=== PATIENT | female | born 1940 | race Caucasian/White ===

== ENCOUNTER 2016-07-11 06:24 | Outpatient (CLI) ==
[2013-04-25 07:03] VITALS: BMI 32.4
[2016-07-11 06:38] LABS: BASOPHILS # (AUTO) 0.1 K/uL (0-0.2); BASOPHILS % (AUTO) 0.8 % (0.0-3.0); EOSINOPHILS # (AUTO) 0.2 K/ul (0.0-0.7); EOSINOPHILS % (AUTO) 2.5 % (0.0-7.0); HEMATOCRIT 41.3 % (37.0-47.0); HEMOGLOBIN 13.4 g/dl (12.0-16.0); IMMATURE GRANULOCYTE % (AUTO) 0.5 % (0.0-5.0); LYMPHOCYTES # (AUTO) 2.7 K/uL (0.60-3.4); LYMPHOCYTES % (AUTO) 28.8 (10.0-50.0); MEAN CORPUSCULAR HEMOGLOBIN 28.3 pg (27.0-31.0); MEAN CORPUSCULAR HGB CONC 32.4 (31.8-35.4); MEAN CORPUSCULAR VOLUME 87.3 fl (81.0-99.0); MONOCYTES # (AUTO) 0.7 K/uL (0.4-2.0); MONOCYTES % (AUTO) 7.8 (0-10); NEUTROPHILS # (AUTO) 5.6 K/ul (2.0-6.9); NEUTROPHILS % (AUTO) 59.6; PLATELET COUNT 294 10^3/uL (140-440); RED BLOOD COUNT 4.73 10^6/ul (4.20-5.40); WHITE BLOOD COUNT 9.46 K/ul (4.6-10.2)
[2016-07-11 07:09] LABS: ALBUMIN 3.7 g/dL (3.4-5.0); ALBUMIN/GLOBULIN RATIO 1.03; ANION GAP 10.7; BILIRUBIN,TOTAL 0.38 mg/dL (0.00-1.20); BUN/CREATININE RATIO 17.64; CALCIUM 9.9 mg/dL (8.2-10.2); CHOL/HDL RATIO 4.7 (4.5-5.5); CREATININE 1.36 mg/dL (0.60-1.30); POTASSIUM 4.7 mmol/L (3.5-5.10); TOTAL PROTEIN 7.3 g/dL (5.8-8.1)
== END 2016-07-11 06:25 | disposition home or self-care (01) ==
LOC: LAB 06:24
PROVIDERS: ATTEND Nurse Practitioner Family
DX: E11.9 Type 2 diabetes mellitus without complications (principal); E78.5 Hyperlipidemia, unspecified; R42 Dizziness and giddiness
CPT/HCPCS: 36415; 80053; 80061; 83036; 85025

== ENCOUNTER 2016-10-18 15:56 | Outpatient (CLI) | payer OTHER ==
[2013-04-25 07:03] VITALS: BMI 32.4
--- NOTE | 2016-10-18 16:16 | DI ---
EXAM: Chest two views HISTORY: Cough COMPARISON: 04/25/2013 TECHNIQUE: Two views of the chest were performed FINDINGS: The lungs are clear. There is no pleural effusion or pneumothorax. The heart is normal in size. The mediastinal contour is normal, noting atherosclerosis. There are no acute abnormaliti es of the bones. IMPRESSION: No acute cardiopulmonary process.
== END 2016-10-18 15:57 | disposition home or self-care (01) ==
LOC: RAD 15:56
PROVIDERS: ATTEND Nurse Practitioner Family
DX: R05 Cough (principal)

== ENCOUNTER 2016-11-30 06:49 | Outpatient (CLI) ==
[2013-04-25 07:03] VITALS: BMI 32.4
[2016-11-30 07:04] LABS: BASOPHILS # (AUTO) 0.1 K/uL (0-0.2); BASOPHILS % (AUTO) 0.6 % (0.0-3.0); EOSINOPHILS # (AUTO) 0.2 K/ul (0.0-0.7); EOSINOPHILS % (AUTO) 2.3 % (0.0-7.0); HEMATOCRIT 39.6 % (37.0-47.0); IMMATURE GRANULOCYTE % (AUTO) 0.4 % (0.0-5.0); LYMPHOCYTES # (AUTO) 2.5 K/uL (0.60-3.4); LYMPHOCYTES % (AUTO) 26.3 (10.0-50.0); MEAN CORPUSCULAR HEMOGLOBIN 28.3 pg (27.0-31.0); MEAN CORPUSCULAR HGB CONC 32.8 (31.8-35.4); MEAN CORPUSCULAR VOLUME 86.1 fl (81.0-99.0); MONOCYTES # (AUTO) 0.7 K/uL (0.4-2.0); MONOCYTES % (AUTO) 7.1 (0-10); NEUTROPHILS % (AUTO) 63.3; PLATELET COUNT 293 10^3/uL (140-440)
[2016-11-30 07:45] LABS: ALBUMIN 3.7 g/dL (3.4-5.0); ALBUMIN/GLOBULIN RATIO 1.09; ANION GAP 16.5; BILIRUBIN,TOTAL 0.41 mg/dL (0.00-1.20); CHOL/HDL RATIO 3.9 (4.5-5.5); CREATININE 1.21 mg/dL (0.60-1.30); POTASSIUM 4.5 mmol/L (3.5-5.10); TOTAL PROTEIN 7.1 g/dL (5.8-8.1)
== END 2016-11-30 06:50 | disposition home or self-care (01) ==
LOC: LAB 06:49
PROVIDERS: ATTEND Nurse Practitioner Family
DX: I10 Essential (primary) hypertension (principal); E78.5 Hyperlipidemia, unspecified; E11.9 Type 2 diabetes mellitus without complications
CPT/HCPCS: 36415; 80053; 80061; 83036; 84443; 85025

== ENCOUNTER 2017-03-03 06:07 | Outpatient (CLI) ==
[2013-04-25 07:03] VITALS: BMI 32.4
[2017-03-03 06:17] LABS: BASOPHILS # (AUTO) 0.1 K/uL (0-0.2); BASOPHILS % (AUTO) 0.6 % (0.0-3.0); EOSINOPHILS # (AUTO) 0.3 K/ul (0.0-0.7); EOSINOPHILS % (AUTO) 3.4 % (0.0-7.0); HEMATOCRIT 37.6 % (37.0-47.0); HEMOGLOBIN 12.6 g/dl (12.0-16.0); IMMATURE GRANULOCYTE % (AUTO) 0.6 % (0.0-5.0); LYMPHOCYTES # (AUTO) 2.9 K/uL (0.60-3.4); LYMPHOCYTES % (AUTO) 34.3 (10.0-50.0); MEAN CORPUSCULAR HEMOGLOBIN 28.5 pg (27.0-31.0); MEAN CORPUSCULAR HGB CONC 33.5 (31.8-35.4); MEAN CORPUSCULAR VOLUME 85.1 fl (81.0-99.0); MONOCYTES # (AUTO) 0.7 K/uL (0.4-2.0); MONOCYTES % (AUTO) 8.4 (0-10); NEUTROPHILS # (AUTO) 4.4 K/ul (2.0-6.9); NEUTROPHILS % (AUTO) 52.7; PLATELET COUNT 270 10^3/uL (140-440); RED BLOOD COUNT 4.42 10^6/ul (4.20-5.40); WHITE BLOOD COUNT 8.42 K/ul (4.6-10.2)
[2017-03-03 06:37] LABS: ALBUMIN 3.5 g/dL (3.4-5.0); ANION GAP 13.6; BILIRUBIN,TOTAL 0.42 mg/dL (0.00-1.20); BUN/CREATININE RATIO 14.92; CALCIUM 10.4 mg/dL (8.2-10.2); CHOL/HDL RATIO 3.8 (4.5-5.5); CREATININE 1.34 mg/dL (0.60-1.30); POTASSIUM 4.6 mmol/L (3.5-5.10)
== END 2017-03-03 06:08 | disposition home or self-care (01) ==
LOC: LAB 06:07
PROVIDERS: ATTEND Nurse Practitioner Family
DX: E11.9 Type 2 diabetes mellitus without complications (principal); E78.5 Hyperlipidemia, unspecified; I10 Essential (primary) hypertension; R94.4 Abnormal results of kidney function studies
CPT/HCPCS: 36415; 80053; 80061; 83036; 85025

== ENCOUNTER 2017-06-02 13:03 | Outpatient (CLI) ==
[2013-04-25 07:03] VITALS: BMI 32.4
[2017-06-02 13:33] LABS: BASOPHILS % (AUTO) 0.5 % (0.0-3.0); EOSINOPHILS # (AUTO) 0.2 K/ul (0.0-0.7); HEMATOCRIT 40.8 % (37.0-47.0); HEMOGLOBIN 13.3 g/dl (12.0-16.0); IMMATURE GRANULOCYTE % (AUTO) 0.1 % (0.0-5.0); LYMPHOCYTES # (AUTO) 2.6 K/uL (0.60-3.4); LYMPHOCYTES % (AUTO) 33.9 (10.0-50.0); MEAN CORPUSCULAR HEMOGLOBIN 27.9 pg (27.0-31.0); MEAN CORPUSCULAR HGB CONC 32.6 (31.8-35.4); MEAN CORPUSCULAR VOLUME 85.7 fl (81.0-99.0); MONOCYTES # (AUTO) 0.6 K/uL (0.4-2.0); MONOCYTES % (AUTO) 8.1 (0-10); NEUTROPHILS # (AUTO) 4.1 K/ul (2.0-6.9); NEUTROPHILS % (AUTO) 54.4; PLATELET COUNT 292 10^3/uL (140-440); RED BLOOD COUNT 4.76 10^6/ul (4.20-5.40); WHITE BLOOD COUNT 7.63 K/ul (4.6-10.2)
[2017-06-02 14:23] LABS: ALBUMIN 3.7 g/dL (3.4-5.0); ALBUMIN/GLOBULIN RATIO 0.93; ANION GAP 14.6; BILIRUBIN,TOTAL 0.38 mg/dL (0.00-1.20); BUN/CREATININE RATIO 18.97; CALCIUM 10.6 mg/dL (8.2-10.2); CHOL/HDL RATIO 4.1 (4.5-5.5); CREATININE 1.37 mg/dL (0.60-1.30); POTASSIUM 4.6 mmol/L (3.5-5.10); TOTAL PROTEIN 7.7 g/dL (5.8-8.1)
== END 2017-06-02 13:04 | disposition home or self-care (01) ==
LOC: LAB 13:03
PROVIDERS: ATTEND Nurse Practitioner Family
DX: I10 Essential (primary) hypertension (principal); E78.5 Hyperlipidemia, unspecified; E11.9 Type 2 diabetes mellitus without complications
CPT/HCPCS: 36415; 80053; 80061; 83036; 84443; 85025

== ENCOUNTER 2017-09-01 08:51 | Outpatient (CLI) ==
[2013-04-25 07:03] VITALS: BMI 32.4
== END 2017-09-01 08:52 | disposition home or self-care (01) ==
LOC: RHC-LAB 08:51
PROVIDERS: ATTEND Nurse Practitioner Family
DX: E11.9 Type 2 diabetes mellitus without complications (principal); E78.5 Hyperlipidemia, unspecified; I10 Essential (primary) hypertension
CPT/HCPCS: 36415; 80053; 80061; 83036

== ENCOUNTER 2017-10-21 07:57 | Outpatient (CLI) ==
[2013-04-25 07:03] VITALS: BMI 32.4
--- NOTE | 2017-10-21 10:29 | MRI ---
EXAM: MRI of the left hip without contrast COMPARISON: MRI of the left hip 12/25/2015. Right hip radiographs 10/02/2009 without recent radiogr aphs of the left hip. MRI of the lumbar spine 08/16/2015. HISTORY: Constant left hip pain. TECHNIQUE: Multiplanar noncontrast MR images of the left hip were acquired using a 1.2 Cheli magnet. Large field of view imaging was employed on the axial and coronal sequences with inclusion both rig ht and left hips in the field of view with sagittal images obtained only through the left hip. FINDINGS: No recent radiographs of the pelvis/hips available for comparison and radiographic correla tion is recommended. There is susceptibility artifact related to the patient's right total hip prosthesis which limits ass essment of the osseous structures and adjacent soft tissues at that level. There is inhomogeneous fa t saturation on the axial T2W fat saturation sequence as a result of the hardware at that site. There is intervertebral the space narrowing. Facet hypertrophy throughout the visualized portions lower l umbar spine. Mild marrow heterogeneity with confluent regions of inversion recovery hyperintense/T1 hypointense signal suggesting nonspecific red marrow reconversion/hyperplasia. There is no evidence of an acute fracture, osteomyelitis or osteonecrosis. Mild to moderate left hip osteoarthrosis with joint space narrowing marginal osteophytes with small subchondral cyst within the anterosuperior port ion of the left acetabulum. Mild degenerative changes of the sacroiliac joints without evidence of a ctive sacroiliitis or ankylosis. The sacroiliac joints are partially imaged. Moderate hypertrophic degenerative changes of the pubic symphysis. There is mild diffuse muscle atrophy. Tendinosis and partial tears of the common hamstring tendons a t their ischial tuberosity attachments bilaterally. Left gluteus minimus tendinosis. There is intra muscular edema involving the left quadratus femoris/adjacent hip adductor musculature suggesting stra in/contusion. There is edema throughout the adjacent soft tissues without a focal drainable fluid co llection. The adjacent sciatic nerve is grossly unremarkable appearance. Intramuscular edema involv ing the left iliacus/iliopsoas extending through the myotendinous junction with thinning/attenuation of the iliopsoas tendon suggesting a partial tear at that level with some thin residual intact fibers identified. There are heterogeneous cystic changes within the lower uterine segment/cervix as previously describe d, overall unchanged in appearance. Suspected small ovarian cysts/follicles. There is minimal left-si ded greater trochanteric bursitis. IMPRESSION: 1. No acute osseous abnormality. Mild to moderate degenerative changes of the left hip as well as d egenerative changes of the pubic symphysis, sacroiliac joints and lower lumbar spine as described. 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 2. Strain/contusion involving the left quadratus femoris/left hip adductor musculature. Strain/cont usion of the left iliopsoas/iliacus with thinning of the iliopsoas tendon leading up to its lesser tu berosity attachment consistent with a high-grade partial tear with some thin residual intact fibers i dentified. 3. Trace left-sided greater trochanteric bursitis. 4. Heterogeneous cystic changes within the lower uterine body segment and cervix as noted on the pre vious study. Suspected small ovarian cyst/follicles. Follow-up imaging with pelvic ultrasound is re commended. 5. Tendinosis/partial tears of the common hamstring tendons at their ischial tuberosity attachments bilaterally. Left gluteus minimus tendinosis.
== END 2017-10-21 07:58 | disposition home or self-care (01) ==
LOC: RAD 07:57
PROVIDERS: ATTEND Nurse Practitioner Family
DX: M25.552 Pain in left hip (principal); G89.29 Other chronic pain; R26.89 Other abnormalities of gait and mobility; Z98.890 Other specified postprocedural states

== ENCOUNTER 2017-12-02 09:12 | Outpatient (CLI) ==
[2013-04-25 07:03] VITALS: BMI 32.4
== END 2017-12-02 09:13 | disposition home or self-care (01) ==
LOC: RHC-LAB 09:12
PROVIDERS: ATTEND Nurse Practitioner Family
DX: E11.9 Type 2 diabetes mellitus without complications (principal); E78.5 Hyperlipidemia, unspecified; I10 Essential (primary) hypertension
CPT/HCPCS: 36415; 80053; 80061; 83036

== ENCOUNTER 2018-12-18 08:19 | Outpatient (CLI) ==
[2013-04-25 07:03] VITALS: BMI 32.4
== END 2018-12-18 08:20 | disposition home or self-care (01) ==
LOC: LAB 08:19
PROVIDERS: ATTEND Nurse Practitioner Family
DX: I10 Essential (primary) hypertension (principal); E78.5 Hyperlipidemia, unspecified
CPT/HCPCS: 36415; 80053; 80061; 85025